=== PATIENT | female | born 1940 | race African-American/Black ===

== ENCOUNTER 2022-07-18 10:10 | Inpatient (IN) | payer OTHER ==
[~2022-07-18] VITALS: Ht 167.6 cm; Wt 73.9 kg
[2022-07-18] MEDS ORDERED: ASPIRIN 81MG TABLET PO ONE (11:45)
[2022-07-18 12:31] LABS: BASOPHILS % 0.6 % (0.0-2.0); EOSINOPHILS % 0.6 % (0.0-5.0); HEMATOCRIT. 40.3 % (36.0-48.0); HEMOGLOBIN. 12.7 g/dL (12.0-16.0); LYMPHOCYTES % 24.5 % (20.0-50.0); MEAN CORPUSCULAR VOLUME 76.1 fL (81.0-99.0); MEAN PLATELET VOLUME 10.8 fl (7.4-10.4); MONOCYTES % 12.7 % (2.0-8.0); NEUTROPHILS % 61.6 % (40.0-76.0); PLATELET 174 x1000/uL (130-400); RED CELL DISTRIBUTION WIDTH 17.6 % (11.6-14.6)
[2022-07-18 12:39] LABS: CHLORIDE 112 mEq/L (98-107)
[2022-07-18] MEDS ORDERED: DOCUSATE SODIUM 100MG CAPSULE PO PRN ×2 (14:45→18:00)
[2022-07-18] MEDS ORDERED: ONDANSETRON HCL 4MG/2ML INJ IV PRN (14:45)
[2022-07-18] MEDS ORDERED: ACETAMINOPHEN 325MG TABLET PO PRN ×2 (14:45)
[2022-07-18] MEDS ORDERED: MAGNESIUM/ALUMINUM HYDROXIDE/SIMETHICONE 30ML UDC PO PRN ×2 (14:45→18:00)
[2022-07-18] MEDS ORDERED: IPRATROPIUM/ALBUTEROL 0.5-3(2.5)MG/3ML NEB HHN PRN (14:45)
[2022-07-18] MEDS: ENOXAPARIN 30MG/0.3ML SYR SUBCUT SCH (15:00)
[2022-07-18 16:31] LABS: CLARITY URINE CLEAR (CLEAR); COLOR URINE YELLOW (YELLOW); KETONES URINE NEGATIVE (NEGATIVE); LEUKOCYTE ESTERASE URINE NEGATIVE (NEGATIVE); NITRITE URINE NEGATIVE (NEGATIVE); OCCULT BLOOD URINE NEGATIVE (NEGATIVE); PH URINE 5.5 (4.5-8.0); PROTEIN URINE NEGATIVE (NEGATIVE); SPECIFIC GRAVITY URINE 1.022 (1.005-1.030); UROBILINOGEN URINE 0.2 E.U./dL (0.2-1.0)
[2022-07-18] MEDS ORDERED: ZOLPIDEM TARTRATE 5MG TABLET PO PRN (18:00)
[2022-07-18] MEDS ORDERED: CLONIDINE 0.1MG TABLET PO PRN (18:00)
[2022-07-18] MEDS ORDERED: NA PHOS,M-B/NA PHOS,DI-BA ENEMA 118ML PR PRN (18:00)
[2022-07-18] MEDS ORDERED: NITROGLYCERIN 0.4MG TABLET SL SL PRN (18:00)
[2022-07-18] MEDS ORDERED: KETOROLAC 15MG/ML VIAL IV PRN (18:00)
[2022-07-18] MEDS: GUAIFENESIN/DM 600MG/30MG ER TAB 12HR PO SCH (18:00)
[2022-07-18 18:24] LABS: T4 FREE 1.07 ng/dL (0.76-1.46)
[2022-07-18 18:47] LABS: FOLIC ACID (FOLATE) SERUM 15.4 ng/mL (>5.38)
[2022-07-18 22:00] VITALS: BP 152/83
[2022-07-18] MEDS: FUROSEMIDE 40MG/4ML VIAL IVP SCH (22:35)
[2022-07-18] MEDS: SPIRONOLACTONE 25MG TABLET PO SCH (22:35)
[2022-07-18] MEDS: FAMOTIDINE 20MG TABLET PO SCH (22:35)
[2022-07-18 23:01] LABS: CREATINE KINASE MB FRACTION 2.8 ng/mL (0.5-3.6)
[2022-07-19] VITALS: BP 158/108
[2022-07-19 04:00] VITALS: BP 138/79
[2022-07-19] MEDS: GUAIFENESIN/DM 600MG/30MG ER TAB 12HR PO SCH ×3 (06:24→21:01)
[2022-07-19 06:52] LABS: HEMATOCRIT. 37.8 % (36.0-48.0); HEMOGLOBIN. 12.1 g/dL (12.0-16.0); MEAN CORPUSCULAR HEMOGLOBIN 24.2 pg (28.0-32.0); MEAN CORPUSCULAR VOLUME 75.3 fL (81.0-99.0); MEAN PLATELET VOLUME 11.1 fl (7.4-10.4); PLATELET 167 x1000/uL (130-400); RED BLOOD CELL COUNT 5.02 mill/uL (4.2-5.4); RED CELL DISTRIBUTION WIDTH 16.5 % (11.6-14.6)
[2022-07-19] MEDS ORDERED: DEXTROSE 50% WATER 50ML SYRINGE IV PRN (07:15)
[2022-07-19 07:34] LABS: CHLORIDE 108 mEq/L (98-107)
[2022-07-19] MEDS: BLOOD SUGAR DIAGNOSTIC STRIP TEST SCH ×4 (07:40→21:00)
[2022-07-19 07:57] LABS: CREATINE KINASE 121 IU/L (26-192); CREATINE KINASE MB FRACTION 1.9 ng/mL (0.5-3.6); T4 FREE 1.15 ng/dL (0.76-1.46)
[2022-07-19 08:00] VITALS: BP 125/58
[2022-07-19] MEDS: INSULIN LISPRO 100 UNITS/ML SUBCUT SCH ×4 (08:10→21:00)
[2022-07-19] MEDS: ASPIRIN 81MG EC TABLET PO SCH (09:40)
[2022-07-19] MEDS: FUROSEMIDE 40MG/4ML VIAL IVP SCH ×2 (09:40→21:01)
[2022-07-19] MEDS: SPIRONOLACTONE 25MG TABLET PO SCH ×2 (09:44→21:01)
[2022-07-19 11:32] LABS: PLATELET ESTIMATE NORMAL
[2022-07-19 12:00] VITALS: BP 116/74
[2022-07-19] MEDS: ENOXAPARIN 30MG/0.3ML SYR SUBCUT SCH (15:00)
[2022-07-19 16:00] VITALS: BP 113/73
[2022-07-19 20:03] VITALS: BP 119/76
[2022-07-19] MEDS: FAMOTIDINE 20MG TABLET PO SCH (21:01)
[2022-07-20] VITALS (9 sets, daily range): BP systolic 105–132; BP diastolic 51–78
[2022-07-20] MEDS: INSULIN LISPRO 100 UNITS/ML SUBCUT SCH ×2 (05:46→13:44)
[2022-07-20] MEDS: BLOOD SUGAR DIAGNOSTIC STRIP TEST SCH ×2 (05:46→13:07)
[2022-07-20] MEDS: ASPIRIN 81MG EC TABLET PO SCH (09:14)
[2022-07-20] MEDS: FUROSEMIDE 40MG/4ML VIAL IVP SCH ×2 (09:14→21:49)
[2022-07-20] MEDS: SPIRONOLACTONE 25MG TABLET PO SCH ×2 (09:14→21:49)
[2022-07-20] MEDS: ENOXAPARIN 30MG/0.3ML SYR SUBCUT SCH (15:11)
[2022-07-20] MEDS: FAMOTIDINE 20MG TABLET PO SCH (21:49)
[2022-07-21] MEDS ORDERED: METOPROLOL SUCCINATE 50MG ER TABLET PO SCH (09:00)
== END 2022-07-21 00:10 | disposition short-term general hospital (02) | DRG 280 ==
LOC: ER 10:10 → 7WST 13:35 → EDBEDREQ 13:44 → EDBEDREQTM 13:44
PROVIDERS: ADMIT Internal Medicine; ATTEND Internal Medicine
DX: I11.0 Hypertensive heart disease with heart failure (principal); I21.4 Non-ST elevation (NSTEMI) myocardial infarction; I50.41 Acute combined systolic (congestive) and diastolic (congestive) heart failure; J96.01 Acute respiratory failure with hypoxia; E11.9 Type 2 diabetes mellitus without complications; E78.00 Pure hypercholesterolemia, unspecified; M48.00 Spinal stenosis, site unspecified; Z20.822 Contact with and (suspected) exposure to COVID-19; Z96.651 Presence of right artificial knee joint; R74.01 Elevation of levels of liver transaminase levels; E78.5 Hyperlipidemia, unspecified; Z88.8 Allergy status to other drugs, medicaments and biological substances; Z90.710 Acquired absence of both cervix and uterus; Z79.82 Long term (current) use of aspirin; Z82.3 Family history of stroke
CPT/HCPCS: 36415; 71045; 80053; 80061; 81003; 82550; 82553; 82607; 82746; 82962; 83036; 83540; 83550; 83880; 84145; 84439; 84443; 84484; 85025; 85379; 87426; 87804; 93005; 93306; 93970; 99291; C9803; J1650; J1815; J1885; J1940